=== PATIENT | female | born 1955 | race Caucasian/White ===

== ENCOUNTER 2019-03-29 10:28 | Emergency (ER) | payer MEDICARE ==
--- OUTSIDE RECORDS SUMMARY | 2019-03-29 13:02 | XMS REPORT | Summary of Care ---
:1955 Author Organization [facility] Address [address] [place] [address] Care Team Providers Name Role Phone Dontae Bear MD Primary Care Provider Reason for Visit Reason Comments Follow-up Encounter Details Date Type Department Care Team Description 02/10/2019 Office Visit Karla Deluca, Psoriasis arthropathica ( Primary Dx); Rheumatology MD Shaggy High risk medication use [address] [id number] [place] [address] [phone] Allergies No Known Allergiesdocumented as of this encounter (statuses as of 02/12/2019) Medications Medication Sig Dispensed Refills Start Date End Date Status levothyroxine Take 25 mcg by 0 Active (SYNTHROID, LEVOTHROID) mouth daily. 25 MCG tablet montelukast (SINGULAIR) Take 10 mg by 0 Active 10 MG tablet mouth nightly. ipratropium-albuterol Inhale 1 puff 0 Active (COMBIVENT RESPIMAT) into the lungs 20-100 MCG/ACT inhaler every 6 (six) hours as needed for Wheezing. methylphenidate Take 30 mg by 0 Active (RITALIN) 5 MG tablet mouth daily alprazolam (XANAX) 1 MG Take 1 mg by 0 Active tablet mouth nightly as needed for Sleep. BREO ELLIPTA 200-25 INL 1 PUFF PO QD 3 02/16/2018 Active MCG/INH AEPB IN THE MORNING folic acid (FOLVITE) 1 folic acid 1 mg tablet 0 Active MG tablet Take 1 tablet every day by oral route. escitalopram (LEXAPRO) Take by mouth 5 06/23/2018 Active 10 MG tablet daily methotrexate 2.5 MG Take 6 tablets by 24 tablet 4 11/11/2018 Active tabletIndications: mouth every 7 Psoriatic arthritis (seven) days mometasone (ELOCON) 0.1 Apply 0.1 Doses 45 g 3 11/12/2018 Active % creamIndications: topically daily Psoriasis arthropathica Adalimumab 40 MG/0.4ML Inject 0.4 mLs 2 each 3 01/08/2019 Active Subcutaneous into the skin Pen-injector Kit every 14 (HUMIRA)Indications: (fourteen) days Psoriatic arthritis ARIPiprazole 5 MG Oral TK 1/2 T PO HS 0 02/06/2019 Active Tablet (ABILIFY) FOR 1 WEEK. INCREASE TO 1 T HS THEREAFTER documented as of this encounter (statuses as of 02/12/2019) Active Problems Problem Noted Date Psoriatic arthritis 07/18/2016 documented as of this encounter (statuses as of 02/12/2019) Social History Tobacco Use Types Packs/Day Years Used Date Never Smoker Smokeless Tobacco: Never Used Tobacco Cessation: Counseling Given: No Alcohol Use Drinks/Week oz/Week Comments Yes 5 Standard drinks or equivalent 5.0 Sex Assigned at Date Recorded Not on file Job Start Date Occupation Industry Not on file Not on file Not on file Travel History Travel Start Travel End No recent travel history available. documented as of this encounter Last Filed Vital Signs Vital Sign Reading Time Taken Comments Blood Pressure 111/68 02/10/2019 2:18 PM EST Pulse 97 02/10/2019 2:18 PM EST Temperature 36.7 02/10/2019 2:18 PM EST C (98 F) Respiratory Rate 16 02/10/2019 2:18 PM EST Oxygen Saturation 97% 02/10/2019 2:18 PM EST Inhaled Oxygen Concentration - - Weight 54.9 kg (121 lb) 02/10/2019 2:18 PM EST Height 162.6 cm (5' 4") 02/10/2019 2:18 PM EST Body Mass Index 20.77 02/10/2019 2:18 PM EST documented in this encounter Progress Notes Shaggy Deluca MD - 02/10/2019 2:15 PM EST Subjective: Patient ID: Ksenia Pan is a 63 y.o. female. The patient has a history of psoriatic arthritis. She is currently on methotrexate 6 tablets per week, folic acid 1 mg per day. She was last seen 3 months ago. At that time, her disease was active, and decision was made to add Humira to the methotrexate. The patient has been able to start Humira and has received currently 2 injections. This has resulted in a dramatic improvement of her symptoms. Denies any significant joint swelling or joint pain. She also has increased energy. She is tolerating the Humira well. She is due today for her third shot. RHEUMATOLOGIC REVIEW OF SYSTEMS: Otherwise unremarkable. MUSCULOSKELETAL EXAM: I did not appreciate synovitis or skin disease. ASSESSMENT: Psoriatic arthritis and psoriasis, seems to be significantly improved with addition to Humira. PLAN: 1. Continue Humira without changes. 2. Continue methotrexate 6 tablets per week, folic acid without changes. 3. Routine labs today. 4. Follow-up appointment in 4 months. Results for orders placed or performed in visit on 02/10/19 Sedimentation rate, automated Result Value Ref Range Sed Rate - ESR 13 <30 mm/hr Creatinine with GFR Result Value Ref Range Creatinine 0.80 0.50 - 0.90 mg/dL GFR Non 2008 CDK-EPI 78 >60 mL/min/1.73m2 GFR 2008 CKD-EPI >90 >60 mL/min/1.73m2 C-reactive protein Result Value Ref Range C Reactive Protein 2.6 <8.0 mg/L CBC and Differential Result Value Ref Range White Blood Cell 4.9 4 - 10 10*3/uL Red Blood Cell 4.03 (L) 4.1 - 5.3 10*6/uL Hemoglobin 12.5 11.5 - 15.5 g/dL Hematocrit 37.2 36 - 45 % Mean Cell Volume 92.4 80 - 96 fL Mean Cell Hemoglobin 31.1 27 - 33 pg Mean Cell Hgb Conc 33.6 32.0 - 36.0 g/dL Red Cell Dist Width 14.4 11.5 - 14.5 % Platelet Count 358 150 - 400 10*3/uL Differential Type Automated Diff Neutrophil 57 % Lymphocyte 26 % Monocyte 10 % Eosinophil 6 % Basophil 1 % Abs Neutrophil 2.79 1.8 - 7.0 10*3/uL Abs Lymphocyte 1.28 1.2 - 4.0 10*3/uL Abs Monocyte 0.49 0 - 0.8 10*3/uL Abs Eosinophil 0.32 0 - 0.5 10*3/uL Abs Basophil 0.05 0 - 0.2 10*3/uL Nucleated Red Blood Cells 0 0 - 0 /100 AST Result Value Ref Range AST/SGO 40 (H) <32 U/L ALT Result Value Ref Range ALT/SGP 27 <33 U/L HPI Ksenia has a past medical history of Arthritis, Asthma, Depression, and Thyroid disease. Ksenia has a past surgical history that includes Fracture surgery (Right). Her family history includes Arthritis in her maternal grandmother, mother, and paternal grandmother;Cancer in her father; Diabetes in her paternal grandmother. Ksenia reports that she has never smoked. She has never used smokeless tobacco. She reports currentalcohol use of about 5.0 standard drinks of alcohol per week. No history on file for drug. Ksenia has a current medication list which includes the following prescription(s ): adalimumab, alprazolam, aripiprazole, breo ellipta, escitalopram, folic acid , ipratropium-albuterol, levothyroxine, methotrexate, methylphenidate, mometasone, and montelukast. Ksenia has No Known Allergies. Review of Systems Constitutional: Negative. HENT: Negative. Eyes: Negative. Respiratory: Negative. Cardiovascular: Negative. Gastrointestinal: Negative. Endocrine: Negative. Genitourinary: Negative. Musculoskeletal: Negative for arthralgias and joint swelling. Skin: Negative. Allergic/Immunologic: Negative. Neurological: Negative. Hematological: Negative. Psychiatric/Behavioral: Negative. Objective: Physical Exam Vitals signs reviewed. Constitutional: Appearance: She is well-developed. HENT: Head: Normocephalic and atraumatic. Eyes: Conjunctiva/sclera: Conjunctivae normal. Neck: Thyroid: No thyromegaly. Trachea: No tracheal deviation. Cardiovascular: Rate and Rhythm: Normal rate and regular rhythm. Pulmonary: Effort: Pulmonary effort is normal. No respiratory distress. Musculoskeletal: General: No swelling or tenderness. Skin: General: Skin is warm and dry. Neurological: Mental Status: She is alert and oriented to person, place, and time. documented in this encounter Plan of Treatment Date Type Specialty Care Team Description 06/16/2019 Office Visit Rheumatology Shaggy Deluca MD [address] [facility] [address] [place] [address] [phone] Health Maintenance Due Date Last Done Comments MMR Vaccines (1 of 1 - Standard 1958 series) Varicella Vaccines (1 of 2 - 1958 2-dose childhood series) DTaP,Tdap,and Td Vaccines (1 - 1964 Tdap) HIV Screening 1970 Cervical Cancer Screening 5 years 1978 Breast Cancer Screening 2 years 06/11/2007 Colon Cancer Screening 10 yrs 06/11/2007 Zoster Vaccines (1 of 2) 06/11/2007 Influenza Vaccine 11/25/2018 Pneumococcal Vaccine: 65+ Years (1 2022 of 2 - PCV13) Hepatitis C Screening (B. Completed 11/11/201819441618-6481) HIB Vaccines Aged Out No longer eligible based on patient's age to complete this topic Hepatitis A Vaccines Aged Out No longer eligible based on patient's age to complete this topic Hepatitis B Vaccines Aged Out No longer eligible based on patient's age to complete this topic IPV Vaccines Aged Out No longer eligible based on patient's age to complete this topic Pneumococcal Vaccine: Pediatrics Aged Out No longer eligible based on (0 to 5 Years) and At-Risk patient's age to complete Patients (6 to 64 Years) this topic documented as of this encounter Procedures Procedure Name Priority Date/Time Associated Comments Diagnosis CREATININE WITH GFR Routine 02/10/2019 2:36 Psoriasis Results for this PM EST arthropathica procedure are in High risk the results medication use section. SEDIMENTATION RATE, Routine 02/10/2019 2:36 Psoriasis Results for this AUTOMATED PM EST arthropathica procedure are in High risk the results medication use section. CBC AND DIFFERENTIAL Routine 02/10/2019 2:36 Psoriasis Results for this PM EST arthropathica procedure are in High risk the results medication use section. C-REACTIVE PROTEIN Routine 02/10/2019 2:36 Psoriasis Results for this PM EST arthropathica procedure are in High risk the results medication use section. ALT Routine 02/10/2019 2:36 Psoriasis Results for this PM EST arthropathica procedure are in High risk the results medication use section. AST Routine 02/10/2019 2:36 Psoriasis Results for this PM EST arthropathica procedure are in High risk the results medication use section. documented in this encounter Results Sedimentation rate, automated (02/10/2019 2:36 PM EST) Pathologist [facility] Sed Rate - ESR 13 <30 mm/hr [facility] Pathology Specimen EDTA Whole Blood Performing Organization Address [facility] Phone Number [facility] [address] [place] [address] [facility] [address] [place] [address] Pathology Creatinine with GFR (02/10/2019 2:36 PM EST) Pathologist [facility] Creatinine 0.80 0.50 - 0.90 [facility] mg/dL [facility] Pathology GFR Non 78 >60 [facility] [place] 2008 CDK-EPI mL/min/1.73m2 Univ [facility] Pathology GFR >90 >60 [place] [address] CKD-EPI mL/min/1.73m2 [facility] Pathology Specimen Plasma Performing Organization Address [facility] Phone Number [facility] [address] [place] [address] [phone] [facility] [address] [place] [address] Pathology C-reactive protein (02/10/2019 2:36 PM EST) Pathologist [facility] C Reactive Protein 2.6 <8.0 mg/L [facility] Pathology Specimen Plasma Performing Organization Address [facility] Phone Number [facility] [address] [place] [address] [phone] [facility] [address] [place] [address] Pathology CBC and Differential (02/10/2019 2:36 PM EST) Pathologist [facility] White Blood Cell 4.9 4 - 10 [facility] 10*3/uL [facility] Pathology Red Blood Cell 4.03 (L) 4.1 - 5.3 [facility] 10*6/uL [facility]ology Hemoglobin 12.5 11.5 - 15.5 [facility] g/dL [facility]ology Hematocrit 37.2 36 - 45 % [facility] Pathology Mean Cell Volume 92.4 80 - 96 fL [facility] Mean Cell Hemoglobin 31.1 27 - 33 pg [facility] Pathology Mean Cell Hgb Conc 33.6 32.0 - 36.0 [facility] g/dL [facility] Pathology Red Cell Dist Width 14.4 11.5 - 14.5 % [facility] Pathology Platelet Count 358 150 - 400 [facility] 10*3/uL [facility] Pathology Differential Type Automated Diff [facility]ology Neutrophil 57 % [facility] Lymphocyte 26 % [facility]ology Monocyte 10 % [facility] Pathology Eosinophil 6 % [facility] Pathology Basophil 1 % [facility]ology Abs Neutrophil 2.79 1.8 - 7.0 [facility] 10*3/uL [facility] Pathology Abs Lymphocyte 1.28 1.2 - 4.0 [facility] 10*3/uL [facility] Pathology Abs Monocyte 0.49 0 - 0.8 [facility] 10*3/uL [facility] Pathology Abs Eosinophil 0.32 0 - 0.5 [facility] 10*3/uL [facility]ology Abs Basophil 0.05 0 - 0.2 [facility] 10*3/uL [facility] Pathology Nucleated Red Blood 0 0 - 0 [facility] Cells /100{WBCs} [facility] Pathology Specimen EDTA Whole Blood Performing Organization Address [facility] Phone Number [facility] [address] [place] [address] [phone] [facility] [address] [place] [address] Pathology AST (02/10/2019 2:36 PM EST) AST/SGO 40 (H) <32 U/L [facility] Pathology Specimen Plasma Performing Organization Address [facility] Phone Number [facility] [address] [place] [address] [facility] [address] [place] [address] Pathology ALT (02/10/2019 2:36 PM EST) ALT/SGP 27 <33 U/L [facility] Pathology Specimen Plasma Performing Organization Address [facility] Phone Number [facility] [address] [place] [address] [facility] [address] [place] [address] Pathology documented in this encounter Visit Diagnoses Diagnosis Psoriasis arthropathica - Primary Psoriatic arthropathy High risk medication use Encounter for long-term (current) use of other medications documented in this encounter
--- NOTE | 2019-03-29 13:14 | UC ---
FLU HPI - HPI Summary HPI Summary: Bodyaches, vomiting x1 yesterday. assoc. w/ chills but can drink fluids. no sick contacts. nothing makes it better/worse. did not get flu shot. - History of Current Complaint Chief Complaint: UCGeneralIllness Stated Complaint: FLU LIKE ILLNESS Time Seen by Provider: 03/29/19 13:14 Hx Obtained From: Patient - Allergy/Home Medications Allergies/Adverse Reactions: Allergies Allergy/AdvReac Type Severity Reaction Status Date / Time No Known Allergies Allergy Verified 03/29/19 13:08 Home Medications: Home Medications ARIPiprazole TAB* [Abilify TAB*] 1 tab DAILY 03/29/19 [History Confirmed ] Adalimumab [Humira] 1 syr SEE INSTRUCTIONS 03/29/19 [History Confirmed 03/29/19] Escitalopram * [Lexapro *] 1 tab DAILY 03/29/19 [History Confirmed 03/29/19] Fluticasone/Vilanterol [Breo Ellipta 200-25 Mcg INH] 1 puff BID 03/29/19 [ History Confirmed 03/29/19] Methotrexate TAB* 6 tab WEEKLY 03/29/19 [History Confirmed 03/29/19] PMH/Surg Hx/FS Hx/Imm Hx Previously Healthy: Yes Psychological History: Anxiety, Depression - Surgical History Surgical History: Yes Surgery Procedure, Year, and Place: fx right arm/plate - Family History Family History: No cardio vascular issues in family lineage - Social History Alcohol Use: Occasionally Substance Use Type: None Smoking Status (MU): Former Smoker When Did the Patient Quit Smoking/Using Tobacco: when in college - Immunization History Most Recent Influenza Vaccination: none Review of Systems All Other Systems Reviewed And Are Negative: Yes Constitutional: Positive: Fever, Chills. Negative: Fatigue ENT: Negative: Sore Throat, Ear Ache, Sinus Congestion Respiratory: Positive: Cough Gastrointestinal: Positive: Vomiting - x1. Negative: Abdominal Pain, Nausea Physical Exam Triage Information Reviewed: Yes Appearance: Well-Appearing Vital Signs Reviewed: Yes Eyes: Positive: Conjunctiva Clear ENT: Positive: Pharynx normal, TMs normal, Uvula midline Neck: Positive: Supple, Nontender, No Lymphadenopathy Respiratory Exam: Normal Cardiovascular Exam: Normal Neurological: Positive: Alert Skin: Negative: Rashes Flu Course/Dx - Course Course Of Treatment: URI symptoms assoc. w/ 1 episode of vomiting in a pt. who did not get the flu vaccines. rapid flu: neg. vitals good. recommended conservative mngmt. towards the end of the visit the pt. took out bottles of medications and asked for alprazolam, escitalopram, and adderrall refills. I was happy to refill the ssri but explained that i would not be refilling the controlled substances. 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 I gave her Maribel Umaña's card so she may speak w/ them. She also gave me the phone while her retired psychiatrist was on the phone, I believe it was Dr. Cantrell? and she wanted me to speak w/ him. The issue is that her new psychiatrist will not be seeing her until April and her rx for both ends today. I spoke w/ him and he understood I was unwilling to rx controlled substances in an urgent care setting as a refills and he understood. His plan was to speak to psychiatrist that she has appt w/ and see if she would be willing to rx before seeing the Pt. in April. - Differential Dx/Diagnosis Differential Diagnosis/HQI/PQRI: Influenza, Upper Respiratory Infection, Other Provider Diagnosis: Viral syndrome Discharge ED - Sign-Out/Discharge Documenting (check all that apply): Patient Departure All imaging exams completed and their final reports reviewed: No Studies - Discharge Plan Condition: Good Disposition: HOME Prescriptions: Escitalopram * [Lexapro *] 20 mg PO DAILY 90 Days #90 tablet Patient Education Materials: Viral Syndrome (ED) Referrals: Dontae Bear MD [Primary Care Provider] - Additional Instructions: if worsening go to emergency room - Billing Disposition and Condition Condition: GOOD Disposition: Home - Attestation Statements Provider Attestation: This patient was not seen by me. I was available for consult. Chart reviewed. GINGER
[2019-03-29 13:17] VITALS: BP 113/69
[2019-03-29 13:35] LABS: Influenza A Molecular Negative (Negative); Influenza B Molecular Negative (Negative)
== END 2019-03-29 14:25 | disposition home or self-care (01) ==
LOC: UCCORT 10:28
DX: B34.9 Viral infection, unspecified (principal); R11.10 Vomiting, unspecified; M79.10 Myalgia, unspecified site; F41.9 Anxiety disorder, unspecified; F32.9 Major depressive disorder, single episode, unspecified; R05 Cough; Z87.891 Personal history of nicotine dependence
CPT/HCPCS: 99212; G0463